=== PATIENT | male | born 1960 | race Caucasian/White ===

== ENCOUNTER 2022-01-14 14:44 | Emergency (ER) | payer BC, OTHER ==
[2022-01-14 15:22] LABS: Bilirubin Neg (Negative); Blood, Urine Negative (Negative); Clarity Clear (Clear); Glucose, Urine (Dipstick) >=1000 mg/dL (Negative); Ketone, Urine Negative (Negative); Leukocyte Negative (Negative); Nitrite Negative (Negative); Protein, Urine (Dipstick) Negative (Neg-Trace); Specific Gravity, Urine 1.005 (1.002-1.036); Urobilinogen Normal mg/dL (Less than 2)
[2022-01-14] MEDS ORDERED: Morphine 2 MG/ML VIAL ONE (15:57)
== END 2022-01-14 17:44 | disposition home or self-care (01) ==
LOC: CSHERS 14:44
DX: N50.812 Left testicular pain (principal); K40.90 Unilateral inguinal hernia, without obstruction or gangrene, not specified as recurrent; N50.89 Other specified disorders of the male genital organs; I10 Essential (primary) hypertension; E11.9 Type 2 diabetes mellitus without complications; Z79.84 Long term (current) use of oral hypoglycemic drugs; Z79.899 Other long term (current) drug therapy
CPT/HCPCS: 74176; 76870; 81003; 93976; 96372; J2270

== ENCOUNTER 2024-08-29 16:18 | Inpatient (IN) | payer BC ==
[~2024-08-29 16:18] MED LIST: Iopamidol 370 76% 100 ML VIAL ONE
[2024-08-29] MEDS ORDERED: Acetaminophen 325 MG TAB ONE (17:08)
[2024-08-29] MEDS ORDERED: hydrALAZINE 20 MG/ML VIAL ONE (17:08)
[2024-08-29 17:28] LABS: #Basophils 0.03 10x3/uL (0.0-0.2); #Eosinophils 0.06 10x3/uL (0.0-0.5); #Monocytes 0.73 10x3/uL (0.0-1.1); #Neutrophils 4.39 10x3/uL (1.5-8.4); %Basophils 0.4 % (0.0-2.0); %Eosinophils 0.7 % (0.0-6.0); %Lymphocytes 36.8 % (18.0-47.0); %Monocytes 8.8 % (0.0-10.0); %Neutrophils 53.1 % (40.0-75.0); Hematocrit 44.8 % (38.8-50.0); Hemoglobin 15.7 g/dL (13.5-17.5); Mean Corpuscular Hemoglobin 29.3 pg (27.0-33.0); Mean Corpuscular Volume 83.7 fL (81.2-95.1); Mean Platelet Volume 9.7 fL (7.4-10.4); Platelet Count 286 10x3/uL (150-450); RBC Distribution Width 12.5 % (11.5-14.5); Red Blood Cell (RBC) Count 5.35 10x6/uL (4.32-5.72); White Blood Cell (WBC) Count 8.3 10x3/uL (3.5-10.5)
[2024-08-29 17:34] LABS: ALT (SGPT) 24 U/L (8-55); AST (SGOT) 21 U/L (5-34); Albumin 4.8 g/dL (3.4-4.8); Alkaline Phosphatase 89 U/L (40-110); Anion Gap 16 mmol/L (10-20); BUN (Urea Nitrogen) 7 mg/dL (8.4-25.7); Bilirubin, Total 1.5 mg/dL (0.2-1.2); Calc. Creatinine Clearance 0 mL/min (70-130); Calcium 10.1 mg/dL (7.8-10.44); Carbon Dioxide 28 mmol/L (23-31); Chloride 95 mmol/L (98-107); Estimated GFR 98; Glucose 175 mg/dL (80-115); Potassium 3.3 mmol/L (3.5-5.1); Protein, Total 7.8 g/dL (5.8-8.1); Sodium 136 mmol/L (136-145)
[2024-08-29 17:40] LABS: Troponin I Less than 0.010 ng/mL (< 0.028)
[2024-08-29] MEDS ORDERED: hydrOXYzine 25 MG TAB ONE (17:44)
[2024-08-29] MEDS ORDERED: Metoprolol Tartrate 5 MG (5 mL) VIAL ONE (18:48)
[2024-08-29 18:54] LABS: #Basophils 0.03 10x3/uL (0.0-0.2); #Eosinophils 0.03 10x3/uL (0.0-0.5); #Monocytes 0.78 10x3/uL (0.0-1.1); #Neutrophils 4.64 10x3/uL (1.5-8.4); %Basophils 0.4 % (0.0-2.0); %Eosinophils 0.4 % (0.0-6.0); %Lymphocytes 33.4 % (18.0-47.0); %Monocytes 9.4 % (0.0-10.0); %Neutrophils 56.2 % (40.0-75.0); Hematocrit 45.6 % (38.8-50.0); Hemoglobin 15.8 g/dL (13.5-17.5); Mean Corpuscular HGB CONC 34.6 g/dL (32.0-36.0); Mean Corpuscular Hemoglobin 28.6 pg (27.0-33.0); Mean Corpuscular Volume 82.5 fL (81.2-95.1); Mean Platelet Volume 9.1 fL (7.4-10.4); Platelet Count 288 10x3/uL (150-450); RBC Distribution Width 12.4 % (11.5-14.5); Red Blood Cell (RBC) Count 5.53 10x6/uL (4.32-5.72); White Blood Cell (WBC) Count 8.3 10x3/uL (3.5-10.5)
[2024-08-29 19:05] LABS: ALT (SGPT) 24 U/L (8-55); AST (SGOT) 20 U/L (5-34); Albumin 4.9 g/dL (3.4-4.8); Alkaline Phosphatase 91 U/L (40-110); Anion Gap 18 mmol/L (10-20); BUN (Urea Nitrogen) 6 mg/dL (8.4-25.7); Bilirubin, Total 1.4 mg/dL (0.2-1.2); Calc. Creatinine Clearance 0 mL/min (70-130); Carbon Dioxide 25 mmol/L (23-31); Chloride 96 mmol/L (98-107); Estimated GFR 98; Globulin 2.9 g/dL (2.4-3.5); Glucose 216 mg/dL (80-115); Potassium 3.2 mmol/L (3.5-5.1); Protein, Total 7.8 g/dL (5.8-8.1); Sodium 136 mmol/L (136-145)
[2024-08-29] MEDS ORDERED: Insulin Regular, Human 100 UNIT/ML 10 ML VIAL ONE (20:53)
[2024-08-29] MEDS ORDERED: Potassium Chloride 20 MEQ TAB ONE (21:25)
[2024-08-29] MEDS ORDERED: cloNIDine 0.1 MG TAB ONE (21:51)
[2024-08-29] MEDS ORDERED: niCARdipine 25 MG/10 ML SDV ONE (21:58)
[2024-08-29] MEDS ORDERED: traMADol HCl 50 MG TAB ONE (22:02)
[2024-08-29] MEDS ORDERED: traMADol HCl 50 MG TAB PO PRN (22:17)
[2024-08-29] MEDS ORDERED: Glucagon 1 MG/ML KIT IM PRN (22:22)
[2024-08-29] MEDS ORDERED: Dextrose 50% Abboject 50 ML SYRINGE SLOW IVP PRN (22:22)
[2024-08-29] MEDS ORDERED: Dextrose 5% in Water 1,000 ML IV PRN (22:22)
[2024-08-29] MEDS ORDERED: niCARdipine 25 MG in Sodium Chloride 0.9% 250 ML 250 ML IVPB SCH (22:30)
[2024-08-29 22:58] LABS: Magnesium 1.9 mg/dL (1.6-2.6)
[2024-08-29 23:05] LABS: Troponin I 0.011 ng/mL (< 0.028)
[2024-08-29] MEDS ORDERED: Potassium Chloride 20 MEQ TAB PO SCH (23:59)
[2024-08-30 00:15] VITALS: BMI 25.8
[2024-08-30] MEDS: HYDROcodone/Acetaminophen 5/325 mg Tablet PO SCH ×2 (00:35→11:38)
[2024-08-30 01:43] LABS: Bilirubin Neg (Negative); Blood, Urine Negative (Negative); Glucose, Urine (Dipstick) Normal (Negative); Ketone, Urine 5 mg/dL (Negative); Leukocyte Negative (Negative); Nitrite Negative (Negative); Protein, Urine (Dipstick) Negative (Neg-Trace); Specific Gravity, Urine 1.015 (1.005-1.030); Urobilinogen Normal mg/dL (Less than 2)
[2024-08-30 01:47] LABS: Clarity Clear (Clear)
[2024-08-30 01:49] LABS: Bacteria/HPF None Seen HPF (None Seen); RBC/HPF 0-3 HPF (0-3); Squamous Epithelial None Seen HPF (0-3); WBC/HPF None Seen HPF (0-3)
[2024-08-30 04:20] LABS: #Basophils 0.03 10x3/uL (0.0-0.2); #Eosinophils 0.09 10x3/uL (0.0-0.5); #Monocytes 0.71 10x3/uL (0.0-1.1); #Neutrophils 3.38 10x3/uL (1.5-8.4); %Basophils 0.4 % (0.0-2.0); %Eosinophils 1.2 % (0.0-6.0); %Lymphocytes 44.3 % (18.0-47.0); %Monocytes 9.4 % (0.0-10.0); %Neutrophils 44.6 % (40.0-75.0); Mean Corpuscular HGB CONC 33.3 g/dL (32.0-36.0); Mean Corpuscular Hemoglobin 27.9 pg (27.0-33.0); Mean Corpuscular Volume 83.8 fL (81.2-95.1); Mean Platelet Volume 9.2 fL (7.4-10.4); Platelet Count 266 10x3/uL (150-450); RBC Distribution Width 12.7 % (11.5-14.5); Red Blood Cell (RBC) Count 5.37 10x6/uL (4.32-5.72); White Blood Cell (WBC) Count 7.6 10x3/uL (3.5-10.5)
[2024-08-30 04:32] LABS: Anion Gap 14 mmol/L (10-20); BUN (Urea Nitrogen) 7 mg/dL (8.4-25.7); Calc. Creatinine Clearance 122 mL/min (70-130); Calcium 9.9 mg/dL (7.8-10.44); Carbon Dioxide 28 mmol/L (23-31); Chloride 102 mmol/L (98-107); Estimated GFR 100; Glucose 163 mg/dL (80-115); Sodium 140 mmol/L (136-145)
[2024-08-30] MEDS: Insulin Lispro 100 UNIT/ML 10 ML VIAL SC PRN (06:11)
[2024-08-30] MEDS: Magnesium Oxide 400 MG TAB PO SCH (09:18)
[2024-08-30] MEDS: metFORMIN 500 MG TAB PO SCH (09:18)
[2024-08-30] MEDS: Enoxaparin 40 MG (0.4 mL) SYRINGE SC SCH (09:19)
[2024-08-30] MEDS ORDERED: Electrolyte Replacement Protocol 1 EACH FS PRN (10:37)
[2024-08-30] MEDS ORDERED: Acetaminophen 325 MG TAB PO PRN (10:54)
[2024-08-30] MEDS ORDERED: Senokot S 8.6-50 MG TAB PO PRN (11:00)
[2024-08-30] MEDS: Amlodipine 5 MG TAB PO SCH (11:39)
[2024-08-30] MEDS: Valsartan 80 MG TAB PO SCH ×2 (11:40→11:41)
[2024-08-30] MEDS: Magnesium 2 GM/50 ML(in water) 2 GM in Premix 1 BAG IVPB SCH (11:40)
[2024-08-30] MEDS: Labetalol HCl 100 MG/20 ML VIAL SLOW IVP PRN (16:47)
[2024-08-30] MEDS: HYDROcodone/Acetaminophen 5/325 mg Tablet PO PRN (18:45)
[2024-08-30] MEDS: NIFEdipine XL 30 MG ER.TAB PO SCH (20:57)
[2024-08-30] MEDS ORDERED: metFORMIN 500 MG TAB PO SCH (21:00)
[2024-08-30] MEDS ORDERED: Amlodipine 5 MG TAB PO SCH (21:00)
[2024-08-31 12:12] VITALS: TEMP 97.7
[2024-08-31 12:34] VITALS: BP 157/89
== END 2024-08-31 13:05 | disposition home or self-care (01) | DRG 305 ==
LOC: CSHERS 16:18 → CSHERHOLD 21:29 → CSHTELE 23:45 → OBSVTOIN 08-30 10:37
PROVIDERS: ADMIT Family Medicine; ATTEND Internal Medicine
DX: I16.1 Hypertensive emergency (principal); E11.9 Type 2 diabetes mellitus without complications; E87.6 Hypokalemia; I10 Essential (primary) hypertension; E83.42 Hypomagnesemia; Z98.890 Other specified postprocedural states; Z82.49 Family history of ischemic heart disease and other diseases of the circulatory system; Z83.3 Family history of diabetes mellitus; Z79.899 Other long term (current) drug therapy; Z79.84 Long term (current) use of oral hypoglycemic drugs
CPT/HCPCS: 36415; 36416; 71045; 71275; 74174; 80048; 81001; 83735; 83880; 84484; 85025; 93005; 94760; 96374; 96375; G0378; J0360; J1650; J1815; J3475; Q9967

== ENCOUNTER 2024-09-08 17:09 | Emergency (ER) | payer BC ==
[2024-09-08] MEDS ORDERED: hydrALAZINE 20 MG/ML VIAL ONE (17:58)
[2024-09-08] MEDS ORDERED: Morphine 4 MG/ML VIAL ONE ×2 (17:58→19:01)
[2024-09-08] MEDS ORDERED: Acetaminophen 500 MG TAB ONE (17:58)
[2024-09-08 17:59] LABS: #Basophils 0.04 10x3/uL (0.0-0.2); #Eosinophils 0.06 10x3/uL (0.0-0.5); #Monocytes 0.68 10x3/uL (0.0-1.1); #Neutrophils 5.11 10x3/uL (1.5-8.4); %Basophils 0.5 % (0.0-2.0); %Eosinophils 0.8 % (0.0-6.0); %Lymphocytes 24.3 % (18.0-47.0); %Monocytes 8.7 % (0.0-10.0); %Neutrophils 65.3 % (40.0-75.0); Hematocrit 44.9 % (38.8-50.0); Hemoglobin 15.8 g/dL (13.5-17.5); Mean Corpuscular HGB CONC 35.2 g/dL (32.0-36.0); Mean Corpuscular Hemoglobin 29.3 pg (27.0-33.0); Mean Corpuscular Volume 83.3 fL (81.2-95.1); Platelet Count 232 10x3/uL (150-450); RBC Distribution Width 12.6 % (11.5-14.5); Red Blood Cell (RBC) Count 5.39 10x6/uL (4.32-5.72); White Blood Cell (WBC) Count 7.82 10x3/uL (3.5-10.5)
[2024-09-08 18:20] LABS: ALT (SGPT) 27 U/L (8-55); AST (SGOT) 28 U/L (5-34); Albumin 5.2 g/dL (3.4-4.8); Alkaline Phosphatase 94 U/L (40-110); Anion Gap 17 mmol/L (10-20); BUN (Urea Nitrogen) 11 mg/dL (8.4-25.7); Bilirubin, Total 0.9 mg/dL (0.2-1.2); Calc. Creatinine Clearance 0 mL/min (70-130); Calcium 10.3 mg/dL (7.8-10.44); Carbon Dioxide 25 mmol/L (23-31); Chloride 103 mmol/L (98-107); Estimated GFR 98; Glucose 150 mg/dL (80-115); Potassium 3.8 mmol/L (3.5-5.1); Protein, Total 8.2 g/dL (5.8-8.1); Sodium 141 mmol/L (136-145)
[2024-09-08 18:26] LABS: Troponin I Less than 0.010 ng/mL (< 0.028)
[2024-09-08] MEDS ORDERED: NIFEdipine XL 30 MG ER.TAB ONE (18:42)
[2024-09-08 19:13] LABS: Bilirubin Neg (Negative); Blood, Urine Negative (Negative); Glucose, Urine (Dipstick) Normal (Negative); Ketone, Urine 15 mg/dL (Negative); Leukocyte Negative (Negative); Nitrite Negative (Negative); Protein, Urine (Dipstick) 15 mg/dl (Neg-Trace); Urobilinogen Normal mg/dL (Less than 2)
[2024-09-08 19:14] LABS: Clarity Clear (Clear)
[2024-09-08 19:18] LABS: Bacteria/HPF None Seen HPF (None Seen); CAUTI Indications for Culture Pelvic or flank pain; RBC/HPF None Seen HPF (0-3); Squamous Epithelial None Seen HPF (0-3); Urine Culture Reflex No No; WBC/HPF None Seen HPF (0-3)
[2024-09-08] MEDS ORDERED: Amlodipine 5 MG TAB ONE (20:20)
[2024-09-08] MEDS ORDERED: Ketorolac Tromethamine 30 MG (1 mL) VIAL ONE (20:20)
[2024-09-08] MEDS ORDERED: diphenhydrAMINE 50 MG/ML VIAL ONE (20:20)
[2024-09-08] MEDS ORDERED: Prochlorperazine 10 MG/2 ML VIAL ONE (20:20)
[2024-09-08] MEDS ORDERED: oxyCODONE 5 MG TAB ONE (22:12)
== END 2024-09-08 22:17 | disposition home or self-care (01) ==
LOC: CSHERS 17:09
DX: I16.0 Hypertensive urgency (principal); R51.9 Headache, unspecified; E11.9 Type 2 diabetes mellitus without complications; I10 Essential (primary) hypertension; Z55.0 Illiteracy and low-level literacy
CPT/HCPCS: 70450; 71045; 80053; 81001; 84484; 85025; 93005; 96365; 96375; 96376; J0360; J0780; J1200; J1885; J2270